=== PATIENT | male | born 1995 | race Two or more races ===

== ENCOUNTER 2016-05-22 20:08 | Inpatient (IN) | payer BC ==
[~2016-05-22] VITALS: Ht 182.9 cm; Wt 86.2 kg
[2016-05-22] MEDS ORDERED: NALOXONE HCL 0.4 MG/ML AMPUL IV ONE ×2 (20:30→22:30)
[2016-05-22] MEDS ORDERED: IV SET PRIMARY 1 EA INFUS.SET MC ONE (20:54)
[2016-05-22] MEDS ORDERED: NALOXONE HCL 0.4 MG/ML AMPUL ONE ×2 (20:54→21:20)
[2016-05-22] MEDS ORDERED: IV NS 0.9% 1,000 ML ONE (20:54)
[2016-05-22] MEDS ORDERED: IV NS 0.9% 1,000 ML BAG IV ONE (21:00)
[2016-05-22] MEDS ORDERED: NALOXONE PREFILLED SYRINGE 2 MG/2 ML SYRINGE ONE ×2 (21:24→22:02)
[2016-05-22] MEDS ORDERED: NALOXONE HCL 2 MG in IV D5W 245 ML IV PRN (22:00)
[2016-05-22] MEDS ORDERED: IV D5W 250 ML IV ONE (22:02)
[2016-05-22] MEDS ORDERED: IV SET PRIMARY PUMP SET 1 EA INFUS.SET MC ONE (22:02)
[2016-05-22 23:12] LABS: BASOPHILS % (AUTO) 0.4 % (0.0-2.0); DIFF TOTAL % 100 %; EOSINOPHILS # (AUTO) 0.3 /CMM (0.0-0.7); EOSINOPHILS % (AUTO) 2.4 % (0.0-6.0); HEMATOCRIT 41 % (39-51); HEMOGLOBIN 13.8 g/dL (13.5-17.5); LYMPHOCYTES # (AUTO) 3.9 /CMM (0.8-4.8); LYMPHOCYTES % (AUTO) 34.4 % (20.0-44.0); MEAN CORPUSCULAR HEMOGLOBIN 28 PG (26.0-33.0); MEAN CORPUSCULAR HGB CONC 33 g/dl (31.0-36.0); MEAN CORPUSCULAR VOLUME 85 fL (80-96); MONOCYTES # (AUTO) 0.8 /CMM (0.1-1.30); MONOCYTES % (AUTO) 6.7 % (2.0-12.0); NEUTROPHILS # (AUTO) 6.3 /CMM (1.8-8.9); NEUTROPHILS % (AUTO) 56.1 % (43.0-81.0); PLATELET COUNT (AUTO) 291 /CMM (150-450); RED BLOOD CELL COUNT(AUTO) 4.85 MIL/uL (4.5-6.0); WHITE BLOOD COUNT (AUTO) 11.3 K/uL (4.3-11.0)
[2016-05-22 23:20] LABS: ANION GAP 10 (5-14); CALCIUM, SERUM 8.7 mg/dL (8.5-10.1); CARBON DIOXIDE 31 mmol/L (21-32); CHLORIDE 102 mmol/L (98-107); CREATININE 0.9 mg/dL (0.6-1.3); GFR 107 mL/min (>60); GLUCOSE 103 mg/dL (74-106); POTASSIUM 4.1 mmol/L (3.5-5.1); SODIUM SERUM 139 mmol/L (136-145); UREA NITROGEN, BLOOD 12 mg/dL (7-18)
[2016-05-22] MEDS ORDERED: LIDOCAINE 2% JEL UROJET 10 ML MM ONE ×2 (23:26→23:30)
[2016-05-22] MEDS ORDERED: IV NS 0.9% 1,000 ML IV PRN (23:41)
[2016-05-23] VITALS (102 sets, daily range): BP systolic 81–161; BP diastolic 32–115
[2016-05-23] LABS: TROPONIN I < 0.017 ng/mL (0.00-0.056)
[2016-05-23] MEDS ORDERED: ONDANSETRON HCL/PF 4 MG/2 ML VIAL IVP PRN
[2016-05-23] MEDS ORDERED: MAGNESIUM HYDROXIDE 30 ML UDC PO PRN
[2016-05-23] MEDS ORDERED: ACETAMINOPHEN 325 MG TABLET PO PRN
[2016-05-23] MEDS ORDERED: MAG HYDROX/AL HYDROX/SIMETH 30 ML UDC PO PRN
[2016-05-23] MEDS ORDERED: Z GUARD REMEDY 2 OZ OINT TP PRN
[2016-05-23 00:01] LABS: CANNABINOID, URINE NEGATIVE (NEGATIVE); PHENCYCLIDINE SCREEN,URINE NEGATIVE (NEGATIVE)
[2016-05-23 00:04] LABS: ALANINE AMINOTRANSFERASE 27 U/L (12-78); ALBUMIN 4.2 g/dL (3.4-5.0); ASPARTATE AMINOTRANSFERASE 14 U/L (15-37); BILIRUBIN,TOTAL 0.2 mg/dL (0.2-1.0); INDIRECT BILIRUBIN 0.2 mg/dL (0.0-1.1); TOTAL PROTEIN, SERUM 7.8 g/dL (6.4-8.2)
[2016-05-23] MEDS ORDERED: IV NS 0.9% 1,000 ML ONE ×2 (00:26→03:29)
[2016-05-23] MEDS ORDERED: LORAZEPAM INJ 2 MG/ML VIAL ONE (00:39)
[2016-05-23] MEDS ORDERED: LORAZEPAM INJ 2 MG/ML VIAL IV STA (00:43)
[2016-05-23] MEDS ORDERED: IV SET PRIMARY PUMP SET 1 EA INFUS.SET MC ONE ×2 (00:50→13:46)
[2016-05-23] MEDS ORDERED: NALOXONE HCL 0.4 MG/ML AMPUL ONE (03:04)
[2016-05-23] MEDS ORDERED: NALOXONE HCL 0.4 MG/ML AMPUL IV STA (03:06)
[2016-05-23] MEDS ORDERED: PROPOFOL 100 ML IV ONE ×2 (03:32→06:45)
[2016-05-23] MEDS: PROPOFOL 100 ML IV PRN ×5 (03:33→22:14)
[2016-05-23] MEDS ORDERED: IV NS 0.9% 1,000 ML IV ONE (04:00)
[2016-05-23 04:40] LABS: BASOPHILS % (AUTO) 0.2 % (0.0-2.0); DIFF TOTAL % 100 %; EOSINOPHILS # (AUTO) 0.1 /CMM (0.0-0.7); EOSINOPHILS % (AUTO) 0.8 % (0.0-6.0); HEMATOCRIT 34 % (39-51); HEMOGLOBIN 11.6 g/dL (13.5-17.5); LYMPHOCYTES # (AUTO) 1.5 /CMM (0.8-4.8); MEAN CORPUSCULAR HEMOGLOBIN 29 PG (26.0-33.0); MEAN CORPUSCULAR HGB CONC 34 g/dl (31.0-36.0); MEAN CORPUSCULAR VOLUME 85 fL (80-96); MONOCYTES % (AUTO) 7.7 % (2.0-12.0); NEUTROPHILS # (AUTO) 10.6 /CMM (1.8-8.9); NEUTROPHILS % (AUTO) 80.3 % (43.0-81.0); PLATELET COUNT (AUTO) 278 /CMM (150-450); RED BLOOD CELL COUNT(AUTO) 3.99 MIL/uL (4.5-6.0); WHITE BLOOD COUNT (AUTO) 13.2 K/uL (4.3-11.0)
[2016-05-23 04:52] LABS: CALCIUM, SERUM 7.4 mg/dL (8.5-10.1); CREATININE 0.8 mg/dL (0.6-1.3); PHOSPHORUS 5.8 mg/dL (2.5-4.9); POTASSIUM 4.6 mmol/L (3.5-5.1)
[2016-05-23 05:15] LABS: ABG HCO3 26.5 mmol/L; ABG PCO2 57.3 mmHg (35.0-45.0); ABG PH 7.283 (7.350-7.450); ABG TOTAL HEMOGLOBIN 12.2 G/dL (13.5-18.0); AaDO2 14.6 mmHg; O2Hb 96.2 % (94.0-97.0)
[2016-05-23] MEDS ORDERED: PANTOPRAZOLE 40 MG TABLET.DR PO SCH (07:30)
[2016-05-23] MEDS ORDERED: IBUP-1955 PO (10:16)
[2016-05-23] MEDS ORDERED: CLON1TAB4 PO (10:16)
[2016-05-23] MEDS: PANTOPRAZOLE 40 MG VIAL IV SCH (12:04)
[2016-05-23] MEDS: IV NS 0.9% 1,000 ML IV PRN ×2 (12:04→19:07)
[2016-05-23] MEDS: LORAZEPAM INJ 2 MG/ML VIAL IV PRN ×2 (20:00→22:13)
[2016-05-24] VITALS (15 sets, daily range): BP systolic 105–131; BP diastolic 49–83
[2016-05-24] MEDS: PROPOFOL 100 ML IV PRN ×4 (00:56→06:48)
[2016-05-24] MEDS: LORAZEPAM INJ 2 MG/ML VIAL IV PRN ×3 (00:57→09:09)
[2016-05-24] MEDS: IV NS 0.9% 1,000 ML IV PRN ×2 (01:36→08:14)
[2016-05-24] MEDS ORDERED: PROPOFOL 100 ML IV ONE ×3 (02:28→06:42)
[2016-05-24] MEDS ORDERED: IV SET PRIMARY PUMP SET 1 EA INFUS.SET MC ONE (02:55)
[2016-05-24 08:43] LABS: ABG BASE EXCESS -0.5 mmol/L; ABG HCO3 24.6 mmol/L; ABG PCO2 42.4 mmHg (35.0-45.0); ABG PH 7.382 (7.350-7.450); ABG PO2 109.5 mmHg (75.0-100.0); ABG TOTAL HEMOGLOBIN 12.4 G/dL (13.5-18.0); ALLEN TEST Pass; AaDO2 54.6 mmHg; O2Hb 95.9 % (94.0-97.0)
[2016-05-24 08:53] LABS: CALCIUM, SERUM 7.7 mg/dL (8.5-10.1); CREATININE 0.6 mg/dL (0.6-1.3); POTASSIUM 3.5 mmol/L (3.5-5.1)
[2016-05-24 08:59] LABS: BASOPHILS % (AUTO) 0.3 % (0.0-2.0); DIFF TOTAL % 100 %; EOSINOPHILS # (AUTO) 0.1 /CMM (0.0-0.7); EOSINOPHILS % (AUTO) 0.7 % (0.0-6.0); HEMATOCRIT 34 % (39-51); HEMOGLOBIN 11.6 g/dL (13.5-17.5); LYMPHOCYTES # (AUTO) 1.7 /CMM (0.8-4.8); LYMPHOCYTES % (AUTO) 20.7 % (20.0-44.0); MEAN CORPUSCULAR HEMOGLOBIN 29 PG (26.0-33.0); MEAN CORPUSCULAR HGB CONC 34 g/dl (31.0-36.0); MEAN CORPUSCULAR VOLUME 84 fL (80-96); MONOCYTES # (AUTO) 0.9 /CMM (0.1-1.30); MONOCYTES % (AUTO) 10.5 % (2.0-12.0); NEUTROPHILS # (AUTO) 5.5 /CMM (1.8-8.9); NEUTROPHILS % (AUTO) 67.8 % (43.0-81.0); PLATELET COUNT (AUTO) 175 /CMM (150-450); RED BLOOD CELL COUNT(AUTO) 4.04 MIL/uL (4.5-6.0); WHITE BLOOD COUNT (AUTO) 8.1 K/uL (4.3-11.0)
[2016-05-24] MEDS: PANTOPRAZOLE 40 MG VIAL IV SCH (09:13)
[2016-05-24] MEDS ORDERED: LORAZEPAM 1 MG TABLET PO PRN (10:00)
[2016-05-25] MEDS ORDERED: PANTOPRAZOLE 40 MG TABLET.DR PO SCH (07:30)
== END 2016-05-24 11:20 | disposition left against medical advice (07) | DRG 812 ==
LOC: ER 20:09 → ICU 22:58
PROVIDERS: ADMIT Internal Medicine; ATTEND Internal Medicine
DX: T42.3X1A Poisoning by barbiturates, accidental (unintentional), initial encounter (principal); J96.02 Acute respiratory failure with hypercapnia; Y92.9 Unspecified place or not applicable; F10.10 Alcohol abuse, uncomplicated; F41.1 Generalized anxiety disorder; F19.10 Other psychoactive substance abuse, uncomplicated
CPT/HCPCS: 31720; 36415; 36600; 71010-TC; 80048-TC; 80076-TC; 80305; 83735-TC; 83880; 84100-TC; 84484-TC; 85025-TC; 94002-TC; 94003-TC; 94799-TC; A4606; C9113; G6040-TC; J2060; J2310; J3490; J7030; J7060; Z7610

== ENCOUNTER 2016-05-24 13:44 | Emergency (ER) | payer BC ==
[~2016-05-24] VITALS: Ht 185.4 cm; Wt 86.2 kg
[~2016-05-24 13:44] MED LIST: CLON1TAB4 PO; IBUP-1955 PO
[2016-05-24 19:28] VITALS: BP 129/71
== END 2016-05-24 19:29 | disposition home or self-care (01) ==
LOC: ER 14:25
DX: F19.10 Other psychoactive substance abuse, uncomplicated (principal); F31.9 Bipolar disorder, unspecified; F41.9 Anxiety disorder, unspecified; R73.09 Other abnormal glucose
CPT/HCPCS: 82962-TC; A4606; Z7610

== ENCOUNTER 2016-05-25 01:17 | Inpatient (IN) | payer BC ==
[2016-05-25] VITALS (41 sets, daily range): BP systolic 61–132; BP diastolic 29–70
[~2016-05-25] VITALS: Ht 175.3 cm; Wt 82.6 kg
[2016-05-25] MEDS ORDERED: IV NS 0.9% 1,000 ML ONE ×2 (01:26→03:28)
[2016-05-25] MEDS ORDERED: IV SET PRIMARY 1 EA INFUS.SET MC ONE (01:26)
[2016-05-25] MEDS ORDERED: IV NS 0.9% 1,000 ML BAG IV ONE ×2 (01:30→08:00)
[2016-05-25] MEDS ORDERED: NALOXONE PREFILLED SYRINGE 2 MG/2 ML SYRINGE ONE ×2 (01:35→02:37)
[2016-05-25 01:36] LABS: BASOPHILS # (AUTO) 0.1 /CMM (0.0-0.2); BASOPHILS % (AUTO) 0.5 % (0.0-2.0); DIFF TOTAL % 100 %; EOSINOPHILS # (AUTO) 0.1 /CMM (0.0-0.7); EOSINOPHILS % (AUTO) 0.3 % (0.0-6.0); HEMATOCRIT 42 % (39-51); HEMOGLOBIN 13.6 g/dL (13.5-17.5); LYMPHOCYTES # (AUTO) 4.7 /CMM (0.8-4.8); LYMPHOCYTES % (AUTO) 20.2 % (20.0-44.0); MEAN CORPUSCULAR HEMOGLOBIN 28 PG (26.0-33.0); MEAN CORPUSCULAR HGB CONC 33 g/dl (31.0-36.0); MEAN CORPUSCULAR VOLUME 86 fL (80-96); MONOCYTES # (AUTO) 0.2 /CMM (0.1-1.30); MONOCYTES % (AUTO) 0.7 % (2.0-12.0); NEUTROPHILS # (AUTO) 18.2 /CMM (1.8-8.9); NEUTROPHILS % (AUTO) 78.3 % (43.0-81.0); PLATELET COUNT (AUTO) 322 /CMM (150-450); WHITE BLOOD COUNT (AUTO) 23.3 K/uL (4.3-11.0)
[2016-05-25 01:40] LABS: KETONES,URINE TRACE (NEGATIVE); LEUKOCYTE ESTERASE ,URINE NEGATIVE (NEGATIVE)
[2016-05-25 01:41] LABS: ANION GAP 27 (5-14); CALCIUM, SERUM 8.5 mg/dL (8.5-10.1); CARBON DIOXIDE 19 mmol/L (21-32); CHLORIDE 96 mmol/L (98-107); CREATININE 1.6 mg/dL (0.6-1.3); GFR 55 mL/min (>60); GLUCOSE 234 mg/dL (74-106); POTASSIUM 4.6 mmol/L (3.5-5.1); SODIUM SERUM 137 mmol/L (136-145); UREA NITROGEN, BLOOD 7 mg/dL (7-18)
[2016-05-25 01:42] LABS: ADD UA MICROSCOPIC YES
[2016-05-25 01:45] LABS: ADD URINE CULTURE NO; RBC,URINE 0-2 /HPF (0-2); WBC,URINE 0-2 /HPF (0-3)
[2016-05-25 01:47] LABS: ALANINE AMINOTRANSFERASE 73 U/L (12-78); ALBUMIN 3.6 g/dL (3.4-5.0); ASPARTATE AMINOTRANSFERASE 101 U/L (15-37); BILIRUBIN,DIRECT 0.3 mg/dL (0.0-0.2); BILIRUBIN,TOTAL 0.6 mg/dL (0.2-1.0); INDIRECT BILIRUBIN 0.3 mg/dL (0.0-1.1); TOTAL PROTEIN, SERUM 7.5 g/dL (6.4-8.2)
[2016-05-25 01:49] LABS: ACETAMINOPHEN 0 ug/ml (10-30); SALICYLATE 2.3 mg/dL (2.8-20.0)
[2016-05-25 01:49] LABS: CANNABINOID, URINE NEGATIVE (NEGATIVE); PHENCYCLIDINE SCREEN,URINE NEGATIVE (NEGATIVE)
[2016-05-25] MEDS ORDERED: NALOXONE HCL 0.4 MG/ML AMPUL IV ONE (02:00)
[2016-05-25] MEDS ORDERED: NALOXONE HCL 2 MG in IV D5W 245 ML IV PRN (02:30)
[2016-05-25] MEDS ORDERED: IV SET PRIMARY PUMP SET 1 EA INFUS.SET MC ONE ×3 (02:37→08:02)
[2016-05-25] MEDS ORDERED: IV NS 0.9% 250 ML IV ONE (02:37)
[2016-05-25] MEDS ORDERED: IV NS 0.9% 1,000 ML IV PRN ×2 (03:59→04:00)
[2016-05-25] MEDS ORDERED: MAG HYDROX/AL HYDROX/SIMETH 30 ML UDC PO PRN (04:00)
[2016-05-25] MEDS ORDERED: Z GUARD REMEDY 2 OZ OINT TP PRN (04:00)
[2016-05-25] MEDS ORDERED: ONDANSETRON HCL/PF 4 MG/2 ML VIAL IVP PRN (04:00)
[2016-05-25] MEDS ORDERED: HYDROCODONE/APAP 5/325MG 1 EACH TABLET PO PRN (04:00)
[2016-05-25] MEDS ORDERED: MAGNESIUM HYDROXIDE 30 ML UDC PO PRN (04:00)
[2016-05-25] MEDS ORDERED: ZOLPIDEM TARTRATE 5 MG TABLET PO PRN (04:00)
[2016-05-25] MEDS ORDERED: IV NS 0.9% 500 ML IV ONE ×3 (04:52→12:30)
[2016-05-25 05:10] LABS: ABG BASE EXCESS -4.2 mmol/L; ABG HCO3 20.5 mmol/L; ABG NOTIFIED WHOM ED RN; ABG PCO2 36.3 mmHg (35.0-45.0); ABG PH 7.369 (7.350-7.450); ABG PO2 62.7 mmHg (75.0-100.0); ABG TOTAL HEMOGLOBIN 12.7 G/dL (13.5-18.0); ALLEN TEST Pass; AaDO2 469.6 mmHg; O2Hb 89.1 % (94.0-97.0)
[2016-05-25 07:57] LABS: ABG BASE EXCESS -1.7 mmol/L; ABG HCO3 23.2 mmol/L; ABG PCO2 40.2 mmHg (35.0-45.0); ABG PO2 63.7 mmHg (75.0-100.0); ABG TOTAL HEMOGLOBIN 12.4 G/dL (13.5-18.0); ALLEN TEST Pass; AaDO2 464.5 mmHg; O2Hb 90.1 % (94.0-97.0)
[2016-05-25] MEDS ORDERED: SECONDARY IV SET 1 EA INFUS.SET MC ONE (08:03)
[2016-05-25] MEDS: PIPERACILLIN /TAZOBACTAM 3.375 G in IV D5W 50 ML IV SCH ×4 (08:05→23:44)
[2016-05-25] MEDS: PANTOPRAZOLE 40 MG TABLET.DR PO SCH (08:14)
[2016-05-25 08:21] LABS: LACTIC ACID 1.1 mmol/L (0.4-2.0)
[2016-05-25] MEDS: VANCOMYCIN 1.25 GM in IV D5W 500 ML IV SCH ×2 (08:35→20:33)
[2016-05-25] MEDS: ACETAMINOPHEN 325 MG TABLET PO PRN ×2 (08:38→23:44)
[2016-05-25 09:01] LABS: CREATININE 0.8 mg/dL (0.6-1.3); POTASSIUM 4.3 mmol/L (3.5-5.1)
[2016-05-25 09:07] LABS: ALBUMIN 2.6 g/dL (3.4-5.0); BILIRUBIN,DIRECT 0.1 mg/dL (0.0-0.2); BILIRUBIN,TOTAL 0.4 mg/dL (0.2-1.0); INDIRECT BILIRUBIN 0.3 mg/dL (0.0-1.1); TOTAL PROTEIN, SERUM 5.6 g/dL (6.4-8.2)
[2016-05-25] MEDS: IV NS 0.9% 1,000 ML IV PRN (14:48)
[2016-05-25] MEDS ORDERED: FEE PK DOSING 1 MIN EA MC ONE (16:13)
[2016-05-25] MEDS ORDERED: NOREPINEPHRINE 16 MG in IV D5W 500 ML IV PRN (17:00)
[2016-05-26] VITALS (43 sets, daily range): BP systolic 65–149; BP diastolic 29–92
[2016-05-26] MEDS: IV NS 0.9% 1,000 ML IV PRN ×3 (01:38→16:52)
[2016-05-26 04:48] LABS: BASOPHILS % (AUTO) 0.4 % (0.0-2.0); DIFF TOTAL % 100 %; EOSINOPHILS # (AUTO) 0.1 /CMM (0.0-0.7); EOSINOPHILS % (AUTO) 1.2 % (0.0-6.0); HEMATOCRIT 29 % (39-51); HEMOGLOBIN 10.1 g/dL (13.5-17.5); LYMPHOCYTES # (AUTO) 1.7 /CMM (0.8-4.8); LYMPHOCYTES % (AUTO) 22.4 % (20.0-44.0); MEAN CORPUSCULAR HEMOGLOBIN 29 PG (26.0-33.0); MEAN CORPUSCULAR HGB CONC 34 g/dl (31.0-36.0); MEAN CORPUSCULAR VOLUME 84 fL (80-96); MONOCYTES # (AUTO) 0.9 /CMM (0.1-1.30); MONOCYTES % (AUTO) 11.8 % (2.0-12.0); NEUTROPHILS # (AUTO) 4.8 /CMM (1.8-8.9); NEUTROPHILS % (AUTO) 64.2 % (43.0-81.0); PLATELET COUNT (AUTO) 160 /CMM (150-450); RED BLOOD CELL COUNT(AUTO) 3.48 MIL/uL (4.5-6.0); WHITE BLOOD COUNT (AUTO) 7.5 K/uL (4.3-11.0)
[2016-05-26 05:04] LABS: CALCIUM, SERUM 7.3 mg/dL (8.5-10.1); CREATININE 0.6 mg/dL (0.6-1.3); POTASSIUM 3.8 mmol/L (3.5-5.1)
[2016-05-26] MEDS: PIPERACILLIN /TAZOBACTAM 3.375 G in IV D5W 50 ML IV SCH ×3 (05:04→17:47)
[2016-05-26] MEDS: PANTOPRAZOLE 40 MG TABLET.DR PO SCH (08:16)
[2016-05-26] MEDS: ACETAMINOPHEN 325 MG TABLET PO PRN ×3 (08:16→19:37)
[2016-05-26] MEDS: VANCOMYCIN 1.25 GM in IV D5W 500 ML IV SCH ×2 (08:18→20:44)
[2016-05-26] MEDS ORDERED: Magnesium 1GM/D5W 100ML PREMIX 100 ML IV SCH (11:00)
[2016-05-26] MEDS ORDERED: Magnesium 1GM/D5W 100ML PREMIX PIGGYBACK IV ONE (11:00)
[2016-05-26] MEDS ORDERED: IV SET PRIMARY PUMP SET 1 EA INFUS.SET MC ONE (11:19)
[2016-05-26] MEDS ORDERED: IV NS 0.9% 500 ML IV ONE (11:20)
[2016-05-26] MEDS ORDERED: K PHOS NEUTRAL 250 MG TABLET PO ONE (16:00)
[2016-05-26] MEDS ORDERED: SECONDARY IV SET 1 EA INFUS.SET MC ONE (19:50)
[2016-05-27] VITALS (26 sets, daily range): BP systolic 101–142; BP diastolic 46–95
[2016-05-27] MEDS ORDERED: IV SET PRIMARY PUMP SET 1 EA INFUS.SET MC ONE (00:32)
[2016-05-27] MEDS: IV NS 0.9% 1,000 ML IV PRN ×2 (00:39→11:44)
[2016-05-27] MEDS: PIPERACILLIN /TAZOBACTAM 3.375 G in IV D5W 50 ML IV SCH ×4 (02:05→17:04)
[2016-05-27 04:32] LABS: BASOPHILS % (AUTO) 0.4 % (0.0-2.0); DIFF TOTAL % 100 %; EOSINOPHILS # (AUTO) 0.2 /CMM (0.0-0.7); EOSINOPHILS % (AUTO) 3.1 % (0.0-6.0); HEMATOCRIT 34 % (39-51); HEMOGLOBIN 11.3 g/dL (13.5-17.5); LYMPHOCYTES # (AUTO) 1.6 /CMM (0.8-4.8); LYMPHOCYTES % (AUTO) 21.1 % (20.0-44.0); MEAN CORPUSCULAR HEMOGLOBIN 29 PG (26.0-33.0); MEAN CORPUSCULAR HGB CONC 34 g/dl (31.0-36.0); MEAN CORPUSCULAR VOLUME 85 fL (80-96); MONOCYTES % (AUTO) 13.2 % (2.0-12.0); NEUTROPHILS # (AUTO) 4.6 /CMM (1.8-8.9); NEUTROPHILS % (AUTO) 62.2 % (43.0-81.0); PLATELET COUNT (AUTO) 223 /CMM (150-450); RED BLOOD CELL COUNT(AUTO) 3.94 MIL/uL (4.5-6.0); WHITE BLOOD COUNT (AUTO) 7.4 K/uL (4.3-11.0)
[2016-05-27 04:45] LABS: CREATININE 0.6 mg/dL (0.6-1.3); PHOSPHORUS 3.3 mg/dL (2.5-4.9); POTASSIUM 3.8 mmol/L (3.5-5.1)
[2016-05-27] MEDS: VANCOMYCIN 1.25 GM in IV D5W 500 ML IV SCH ×3 (05:00→21:01)
[2016-05-27] MEDS: PANTOPRAZOLE 40 MG TABLET.DR PO SCH (07:53)
[2016-05-27] MEDS: ACETAMINOPHEN 325 MG TABLET PO PRN ×3 (08:21→19:56)
[2016-05-27] MEDS ORDERED: Magnesium 1GM/D5W 100ML PREMIX 100 ML IV SCH ×2 (09:30)
[2016-05-27] MEDS ORDERED: SECONDARY IV SET 1 EA INFUS.SET MC ONE (10:27)
[2016-05-27] MEDS: LACTOBACILLUS RHAMNOSUS GG 1 EACH CAP.SPRINK PO SCH (17:04)
[2016-05-28] VITALS (7 sets, daily range): BP systolic 96–128; BP diastolic 47–72
[2016-05-28] MEDS: ACETAMINOPHEN 325 MG TABLET PO PRN ×4 (01:44→21:04)
[2016-05-28] MEDS: VANCOMYCIN 1.25 GM in IV D5W 500 ML IV SCH (05:11)
[2016-05-28 07:05] LABS: BASOPHILS % (AUTO) 0.2 % (0.0-2.0); EOSINOPHILS # (AUTO) 0.3 /CMM (0.0-0.7); HEMATOCRIT 37 % (39-51); HEMOGLOBIN 12.6 g/dL (13.5-17.5); LYMPHOCYTES # (AUTO) 1.5 /CMM (0.8-4.8); LYMPHOCYTES % (AUTO) 17.5 % (20.0-44.0); MEAN CORPUSCULAR HEMOGLOBIN 28 PG (26.0-33.0); MEAN CORPUSCULAR HGB CONC 34 g/dl (31.0-36.0); MEAN CORPUSCULAR VOLUME 83 fL (80-96); MONOCYTES # (AUTO) 0.8 /CMM (0.1-1.30); MONOCYTES % (AUTO) 9.5 % (2.0-12.0); NEUTROPHILS # (AUTO) 6.1 /CMM (1.8-8.9); NEUTROPHILS % (AUTO) 69.8 % (43.0-81.0); PLATELET COUNT (AUTO) 278 /CMM (150-450); RED BLOOD CELL COUNT(AUTO) 4.42 MIL/uL (4.5-6.0); WHITE BLOOD COUNT (AUTO) 8.7 K/uL (4.3-11.0)
[2016-05-28] MEDS: PIPERACILLIN /TAZOBACTAM 3.375 G in IV D5W 50 ML IV SCH ×5 (07:14→18:20)
[2016-05-28 07:27] LABS: CALCIUM, SERUM 8.4 mg/dL (8.5-10.1); CREATININE 0.7 mg/dL (0.6-1.3)
[2016-05-28 07:55] LABS: DIFF TOTAL % 100 %
[2016-05-28] MEDS: LACTOBACILLUS RHAMNOSUS GG 1 EACH CAP.SPRINK PO SCH ×2 (08:18→16:19)
[2016-05-28] MEDS: PANTOPRAZOLE 40 MG TABLET.DR PO SCH (08:18)
[2016-05-28] MEDS: VANCOMYCIN 1 GM in IV D5W 250 ML IV SCH (16:49)
[2016-05-29] MEDS: PIPERACILLIN /TAZOBACTAM 3.375 G in IV D5W 50 ML IV SCH ×5 (00:01→23:37)
[2016-05-29] MEDS: VANCOMYCIN 1 GM in IV D5W 250 ML IV SCH ×5 (00:01→23:36)
[2016-05-29 00:12] VITALS: BP 117/65
[2016-05-29] MEDS: ACETAMINOPHEN 325 MG TABLET PO PRN ×3 (03:03→21:35)
[2016-05-29 04:00] VITALS: BP 124/65
[2016-05-29 08:00] VITALS: BP 100/51
[2016-05-29] MEDS: LACTOBACILLUS RHAMNOSUS GG 1 EACH CAP.SPRINK PO SCH ×2 (08:22→17:08)
[2016-05-29] MEDS: PANTOPRAZOLE 40 MG TABLET.DR PO SCH (08:22)
[2016-05-29 16:00] VITALS: BP 96/54
[2016-05-29 20:00] VITALS: BP 107/73
[2016-05-29 20:30] VITALS: BP 97/52
[2016-05-30] VITALS: BP 103/53
[2016-05-30 00:09] VITALS: BP 103/53
[2016-05-30] MEDS ORDERED: IV NS 0.9% 250 ML IV ONE (02:28)
[2016-05-30 04:00] VITALS: BP 106/49
[2016-05-30 04:47] VITALS: BP 106/49
[2016-05-30] MEDS: PIPERACILLIN /TAZOBACTAM 3.375 G in IV D5W 50 ML IV SCH (06:14)
[2016-05-30 07:25] LABS: CALCIUM, SERUM 9.1 mg/dL (8.5-10.1); CREATININE 0.6 mg/dL (0.6-1.3); POTASSIUM 4.4 mmol/L (3.5-5.1)
[2016-05-30 08:00] VITALS: BP_SYST 119; BP_SYST 165; BP_DIAS 60; BP_DIAS 66; BP_DIAS 84
[2016-05-30] MEDS: ACETAMINOPHEN 325 MG TABLET PO PRN (08:03)
[2016-05-30] MEDS: LACTOBACILLUS RHAMNOSUS GG 1 EACH CAP.SPRINK PO SCH (08:03)
[2016-05-30] MEDS: VANCOMYCIN 1 GM in IV D5W 250 ML IV SCH (08:04)
[2016-05-30] MEDS: PANTOPRAZOLE 40 MG TABLET.DR PO SCH (08:04)
[2016-05-30] MEDS ORDERED: VANCOMYCIN 1 GM in IV D5W 250 ML IV SCH (16:00)
== END 2016-05-30 15:14 | DRG 812 ==
LOC: ER 01:18 → ICU 02:52 → TELE-TD 05-27 18:26 → TELE1 05-28 16:08
PROVIDERS: ADMIT Internal Medicine; ATTEND Internal Medicine
DX: T50.901A Poisoning by unspecified drugs, medicaments and biological substances, accidental (unintentional), initial encounter (principal); N17.0 Acute kidney failure with tubular necrosis; J96.01 Acute respiratory failure with hypoxia; J69.0 Pneumonitis due to inhalation of food and vomit; J90 Pleural effusion, not elsewhere classified; Y92.89 Other specified places as the place of occurrence of the external cause; F31.9 Bipolar disorder, unspecified; F41.1 Generalized anxiety disorder; E83.42 Hypomagnesemia; F10.10 Alcohol abuse, uncomplicated; F11.20 Opioid dependence, uncomplicated
CPT/HCPCS: 36415; 36600; 71010-TC; 80048-TC; 80076-TC; 80202-TC; 80305; 81000-TC; 82803-TC; 82962-TC; 83605-TC; 83735-TC; 83880; 84100-TC; 85025-TC; 87040-TC; 87081-TC; 93307-TC; 94799-TC; A4606; C1751; G6038-TC; G6039-TC; G6040-TC; J2310; J2405; J2543; J3370; J3475; J7030; J7040; J7050; J7060; Z7610

== ENCOUNTER 2016-06-03 18:28 | Emergency (ER) | payer BC, OTHER ==
[~2016-06-03] VITALS: Ht 182.9 cm; Wt 86.2 kg
[2016-06-03] MEDS ORDERED: LORAZEPAM INJ 2 MG/ML VIAL IVP ONE ×2 (19:00→20:00)
[2016-06-03] MEDS ORDERED: IV NS 0.9% 1,000 ML BAG IV ONE (19:00)
[2016-06-03] MEDS ORDERED: IV NS 0.9% 1,000 ML ONE (19:07)
[2016-06-03] MEDS ORDERED: IV SET PRIMARY 1 EA INFUS.SET MC ONE (19:07)
[2016-06-03] MEDS ORDERED: LORAZEPAM INJ 2 MG/ML VIAL ONE ×2 (19:07→19:33)
[2016-06-03 19:29] LABS: BASOPHILS # (AUTO) 0.1 /CMM (0.0-0.2); BASOPHILS % (AUTO) 0.8 % (0.0-2.0); DIFF TOTAL % 100 %; EOSINOPHILS # (AUTO) 0.3 /CMM (0.0-0.7); EOSINOPHILS % (AUTO) 3.2 % (0.0-6.0); HEMATOCRIT 45 % (39-51); HEMOGLOBIN 15.1 g/dL (13.5-17.5); LYMPHOCYTES # (AUTO) 4.9 /CMM (0.8-4.8); LYMPHOCYTES % (AUTO) 44.5 % (20.0-44.0); MEAN CORPUSCULAR HEMOGLOBIN 28 PG (26.0-33.0); MEAN CORPUSCULAR HGB CONC 34 g/dl (31.0-36.0); MEAN CORPUSCULAR VOLUME 84 fL (80-96); MONOCYTES # (AUTO) 0.7 /CMM (0.1-1.30); NEUTROPHILS # (AUTO) 4.7 /CMM (1.8-8.9); NEUTROPHILS % (AUTO) 44.5 % (43.0-81.0); PLATELET COUNT (AUTO) 498 /CMM (150-450); RED BLOOD CELL COUNT(AUTO) 5.38 MIL/uL (4.5-6.0); WHITE BLOOD COUNT (AUTO) 10.7 K/uL (4.3-11.0)
[2016-06-03 19:30] LABS: ADD UA MICROSCOPIC NO; KETONES,URINE Negative (NEGATIVE); LEUKOCYTE ESTERASE ,URINE Negative (NEGATIVE); PH,URINE 6.5 (5.0-8.0)
[2016-06-03] MEDS ORDERED: diphenhydrAMINE HCL 50 MG/ML VIAL ONE (19:33)
[2016-06-03] MEDS ORDERED: HALOPERIDOL LACTATE INJ 5 MG/ML VIAL ONE (19:33)
[2016-06-03 19:38] LABS: CANNABINOID, URINE NEGATIVE (NEGATIVE); PHENCYCLIDINE SCREEN,URINE NEGATIVE (NEGATIVE)
[2016-06-03 19:40] LABS: CALCIUM, SERUM 9.2 mg/dL (8.5-10.1); CREATININE 0.7 mg/dL (0.6-1.3)
[2016-06-03 19:45] LABS: ALBUMIN 4.2 g/dL (3.4-5.0); BILIRUBIN,TOTAL 0.2 mg/dL (0.2-1.0); TOTAL PROTEIN, SERUM 8.4 g/dL (6.4-8.2)
[2016-06-03 19:47] LABS: INDIRECT BILIRUBIN 0.2 mg/dL (0.0-1.1); SALICYLATE 1.8 mg/dL (2.8-20.0)
[2016-06-03] MEDS ORDERED: HALOPERIDOL LACTATE INJ 5 MG/ML VIAL IM ONE (20:00)
[2016-06-03] MEDS ORDERED: diphenhydrAMINE HCL 50 MG/ML VIAL IV ONE (20:00)
[2016-06-04] MEDS ORDERED: CHLORDIAZEPOXIDE HCL 25 MG CAPSULE ONE (05:27)
[2016-06-04] MEDS ORDERED: CHLORDIAZEPOXIDE HCL 25 MG CAPSULE PO ONE (05:30)
[2016-06-04 05:32] VITALS: BP 115/65
== END 2016-06-04 07:01 ==
LOC: ER 18:30
DX: R45.851 Suicidal ideations (principal); F10.10 Alcohol abuse, uncomplicated
CPT/HCPCS: 36415; 80048-TC; 80076-TC; 80305; 81000-TC; 85025-TC; A4606; G6038-TC; G6039-TC; G6040-TC; J1200; J1630; J2060; J7030; Z7610

== ENCOUNTER 2016-07-01 18:24 | Inpatient (IN) | payer BC ==
[~2016-07-01] VITALS: Ht 182.9 cm; Wt 87.8 kg
[2016-07-01 18:45] LABS: BASOPHILS # (AUTO) 0.1 /CMM (0.0-0.2); BASOPHILS % (AUTO) 0.6 % (0.0-2.0); DIFF TOTAL % 100 %; EOSINOPHILS # (AUTO) 0.6 /CMM (0.0-0.7); EOSINOPHILS % (AUTO) 4.8 % (0.0-6.0); HEMATOCRIT 41 % (39-51); HEMOGLOBIN 13.8 g/dL (13.5-17.5); LYMPHOCYTES # (AUTO) 3.9 /CMM (0.8-4.8); MEAN CORPUSCULAR HEMOGLOBIN 28 PG (26.0-33.0); MEAN CORPUSCULAR HGB CONC 34 g/dl (31.0-36.0); MEAN CORPUSCULAR VOLUME 83 fL (80-96); MONOCYTES % (AUTO) 8.3 % (2.0-12.0); NEUTROPHILS # (AUTO) 6.7 /CMM (1.8-8.9); NEUTROPHILS % (AUTO) 54.3 % (43.0-81.0); PLATELET COUNT (AUTO) 278 /CMM (150-450); RED BLOOD CELL COUNT(AUTO) 4.96 MIL/uL (4.5-6.0); WHITE BLOOD COUNT (AUTO) 12.3 K/uL (4.3-11.0)
[2016-07-01 18:53] LABS: ANION GAP 13 (5-14); CALCIUM, SERUM 8.9 mg/dL (8.5-10.1); CARBON DIOXIDE 27 mmol/L (21-32); CHLORIDE 109 mmol/L (98-107); CREATININE 0.8 mg/dL (0.6-1.3); GFR 121 mL/min (>60); GLUCOSE 91 mg/dL (74-106); POTASSIUM 3.3 mmol/L (3.5-5.1); SODIUM SERUM 146 mmol/L (136-145); UREA NITROGEN, BLOOD 12 mg/dL (7-18)
[2016-07-01 18:57] LABS: ACETAMINOPHEN 0 ug/ml (10-30); SALICYLATE 2.1 mg/dL (2.8-20.0)
[2016-07-01] MEDS ORDERED: IV NS 0.9% 1,000 ML BAG IV ONE (19:00)
[2016-07-01 19:01] LABS: TROPONIN I < 0.017 ng/mL (0.00-0.056)
[2016-07-01] MEDS ORDERED: IV SET PRIMARY 1 EA INFUS.SET MC ONE (19:11)
[2016-07-01] MEDS ORDERED: IV NS 0.9% 1,000 ML ONE ×2 (19:11→23:14)
[2016-07-01 19:13] VITALS: BP 121/69
[2016-07-01] MEDS ORDERED: IV SET PRIMARY PUMP SET 1 EA INFUS.SET MC ONE ×2 (19:26→23:14)
[2016-07-01] MEDS ORDERED: PROPOFOL 100 ML IV ONE (19:26)
[2016-07-01] MEDS ORDERED: SUCCINYLCHOLINE CHLORIDE 20 MG/ML VIAL IV ONE ×2 (19:30→20:00)
[2016-07-01] MEDS ORDERED: ETOMIDATE 2 MG/ML VIAL IV ONE ×2 (19:30→20:00)
[2016-07-01 20:02] LABS: ABG BASE EXCESS -2.2 mmol/L; ABG HCO3 24.7 mmol/L; ABG PCO2 50.7 mmHg (35.0-45.0); ABG PH 7.305 (7.350-7.450); ABG PO2 600.2 mmHg (75.0-100.0); ABG TOTAL HEMOGLOBIN 13.1 G/dL (13.5-18.0); ALLEN TEST Pass; AaDO2 62.1 mmHg; O2Hb 97.5 % (94.0-97.0)
[2016-07-01] MEDS: PROPOFOL 100 ML IV PRN ×2 (20:10→23:20)
[2016-07-01 20:26] LABS: CANNABINOID, URINE NEGATIVE (NEGATIVE); PHENCYCLIDINE SCREEN,URINE NEGATIVE (NEGATIVE)
[2016-07-01 20:46] VITALS: BP 146/79
[2016-07-01 21:22] LABS: ADD UA MICROSCOPIC NO; KETONES,URINE NEGATIVE (NEGATIVE); LEUKOCYTE ESTERASE ,URINE NEGATIVE (NEGATIVE)
[2016-07-01] MEDS ORDERED: ONDANSETRON HCL/PF 4 MG/2 ML VIAL IVP PRN (22:30)
[2016-07-01] MEDS ORDERED: Z GUARD REMEDY 2 OZ OINT TP PRN (22:30)
[2016-07-01] MEDS ORDERED: MAGNESIUM HYDROXIDE 30 ML UDC PO PRN (22:30)
[2016-07-01] MEDS ORDERED: ACETAMINOPHEN 325 MG TABLET PO PRN (22:30)
[2016-07-01] MEDS ORDERED: MAG HYDROX/AL HYDROX/SIMETH 30 ML UDC PO PRN (22:30)
[2016-07-01 23:00] VITALS: BP 110/45
[2016-07-01 23:04] VITALS: BP 110/60
[2016-07-01] MEDS ORDERED: ENOXAPARIN SODIUM 40 MG/0.4 ML DISP.SYRIN SQ ONE (23:14)
[2016-07-01] MEDS: IV NS 0.9% 1,000 ML IV PRN (23:19)
[2016-07-01] MEDS: ENOXAPARIN SODIUM 40 MG/0.4 ML DISP.SYRIN SQ SCH (23:19)
[2016-07-01 23:34] VITALS: BP 96/63
[2016-07-02] VITALS (38 sets, daily range): BP systolic 96–144; BP diastolic 39–89
[2016-07-02 00:08] LABS: ABG BASE EXCESS -0.6 mmol/L; ABG HCO3 25.8 mmol/L; ABG PCO2 49.8 mmHg (35.0-45.0); ABG PH 7.333 (7.350-7.450); ABG PO2 146.9 mmHg (75.0-100.0); ALLEN TEST Pass; AaDO2 8.5 mmHg; O2Hb 96.2 % (94.0-97.0)
[2016-07-02] MEDS: PROPOFOL 100 ML IV PRN ×12 (01:39→23:40)
[2016-07-02] MEDS ORDERED: LORAZEPAM INJ 2 MG/ML VIAL ONE (03:16)
[2016-07-02] MEDS: LORAZEPAM INJ 2 MG/ML VIAL IV PRN ×2 (03:20→08:36)
[2016-07-02 05:11] LABS: BASOPHILS % (AUTO) 0.4 % (0.0-2.0); DIFF TOTAL % 100 %; EOSINOPHILS # (AUTO) 0.5 /CMM (0.0-0.7); EOSINOPHILS % (AUTO) 4.5 % (0.0-6.0); HEMATOCRIT 37 % (39-51); HEMOGLOBIN 12.6 g/dL (13.5-17.5); MEAN CORPUSCULAR HEMOGLOBIN 28 PG (26.0-33.0); MEAN CORPUSCULAR HGB CONC 34 g/dl (31.0-36.0); MEAN CORPUSCULAR VOLUME 84 fL (80-96); MONOCYTES % (AUTO) 9.7 % (2.0-12.0); NEUTROPHILS # (AUTO) 5.9 /CMM (1.8-8.9); NEUTROPHILS % (AUTO) 56.4 % (43.0-81.0); PLATELET COUNT (AUTO) 254 /CMM (150-450); RED BLOOD CELL COUNT(AUTO) 4.43 MIL/uL (4.5-6.0); WHITE BLOOD COUNT (AUTO) 10.5 K/uL (4.3-11.0)
[2016-07-02 05:36] LABS: ALBUMIN 3.3 g/dL (3.4-5.0); BILIRUBIN,TOTAL 0.1 mg/dL (0.2-1.0); CALCIUM, SERUM 7.6 mg/dL (8.5-10.1); CREATININE 0.8 mg/dL (0.6-1.3); PHOSPHORUS 4.9 mg/dL (2.5-4.9); POTASSIUM 3.6 mmol/L (3.5-5.1); TOTAL PROTEIN, SERUM 6.3 g/dL (6.4-8.2)
[2016-07-02 05:44] LABS: THYROID STIMULATING HORMONE 7.109 uIU/mL (0.358-3.74)
[2016-07-02] MEDS ORDERED: IV NS 0.9% 1,000 ML ONE (05:53)
[2016-07-02] MEDS: IV NS 0.9% 1,000 ML IV PRN (06:09)
[2016-07-02] MEDS: PANTOPRAZOLE 40 MG VIAL IV SCH (08:28)
[2016-07-02] MEDS: IV 1/2NS 1000 ML 1,000 ML IV PRN ×2 (09:17→18:29)
[2016-07-02] MEDS: HYDROCODONE/APAP 5/325MG 1 EACH TABLET PO PRN (10:47)
[2016-07-02] MEDS ORDERED: SECONDARY IV SET 1 EA INFUS.SET MC ONE ×2 (11:04→13:30)
[2016-07-02] MEDS: Magnesium 1GM/D5W 100ML PREMIX 100 ML IV SCH ×2 (11:10→11:58)
[2016-07-02] MEDS ORDERED: IV SET PRIMARY PUMP SET 1 EA INFUS.SET MC ONE (17:47)
[2016-07-02] MEDS ORDERED: SUCCINYLCHOLINE CHLORIDE 20 MG/ML VIAL IV ONE (18:30)
[2016-07-02] MEDS ORDERED: FEE EMEERGENCY 1 MIN EA MC ONE (18:30)
[2016-07-02] MEDS ORDERED: ETOMIDATE 2 MG/ML VIAL IV ONE (18:30)
[2016-07-02] MEDS: ENOXAPARIN SODIUM 40 MG/0.4 ML DISP.SYRIN SQ SCH (22:29)
[2016-07-03] VITALS (29 sets, daily range): BP systolic 110–154; BP diastolic 53–91
[2016-07-03] MEDS: PROPOFOL 100 ML IV PRN ×5 (01:54→08:15)
[2016-07-03] MEDS: IV 1/2NS 1000 ML 1,000 ML IV PRN ×2 (01:57→10:56)
[2016-07-03] MEDS ORDERED: IV SET PRIMARY PUMP SET 1 EA INFUS.SET MC ONE (04:41)
[2016-07-03 04:59] LABS: CALCIUM, SERUM 8.3 mg/dL (8.5-10.1); CREATININE 0.8 mg/dL (0.6-1.3); POTASSIUM 3.8 mmol/L (3.5-5.1)
[2016-07-03] MEDS ORDERED: DC PROPOFOL WHEN EXTUBATED XX PRN (08:00)
[2016-07-03] MEDS: PANTOPRAZOLE 40 MG VIAL IV SCH (08:17)
[2016-07-03 09:47] LABS: ABG BASE EXCESS -0.1 mmol/L; ABG HCO3 24.8 mmol/L; ABG PCO2 41.4 mmHg (35.0-45.0); ABG PH 7.395 (7.350-7.450); ABG PO2 98.1 mmHg (75.0-100.0); AaDO2 67.2 mmHg; O2Hb 95.1 % (94.0-97.0)
[2016-07-03] MEDS: LORAZEPAM INJ 2 MG/ML VIAL IV PRN ×3 (12:55→20:56)
[2016-07-03] MEDS: MENTHOL/CETYLPYRD (CEPACOL) 1 LOZ LOZENGE PO PRN ×2 (16:50→19:40)
[2016-07-03] MEDS ORDERED: IBUPROFEN 400 MG TABLET PO PRN (18:30)
[2016-07-03] MEDS ORDERED: ZOLPIDEM TARTRATE 5 MG TABLET PO PRN (21:00)
[2016-07-03] MEDS: ENOXAPARIN SODIUM 40 MG/0.4 ML DISP.SYRIN SQ SCH (22:45)
[2016-07-03] MEDS ORDERED: LORAZEPAM INJ 2 MG/ML VIAL IV PRN (23:00)
[2016-07-03] MEDS ORDERED: LORAZEPAM INJ 2 MG/ML VIAL IV ONE (23:00)
[2016-07-03] MEDS ORDERED: MENTHOL/CETYLPYRD (CEPACOL) 1 LOZ LOZENGE ONE (23:20)
[2016-07-04] VITALS (18 sets, daily range): BP systolic 92–148; BP diastolic 46–99
[2016-07-04] MEDS: HYDROCODONE/APAP 5/325MG 1 EACH TABLET PO PRN ×4 (00:09→20:50)
[2016-07-04] MEDS: MENTHOL/CETYLPYRD (CEPACOL) 1 LOZ LOZENGE PO PRN ×4 (00:14→21:37)
[2016-07-04] MEDS: LORAZEPAM INJ 2 MG/ML VIAL IV PRN ×4 (02:05→14:05)
[2016-07-04] MEDS: PANTOPRAZOLE 40 MG VIAL IV SCH (09:06)
[2016-07-04] MEDS: LORAZEPAM 1 MG TABLET PO PRN ×2 (18:24→22:29)
[2016-07-04] MEDS: OLANZAPINE 2.5 MG TABLET PO SCH (20:46)
[2016-07-04] MEDS: ENOXAPARIN SODIUM 40 MG/0.4 ML DISP.SYRIN SQ SCH (22:30)
[2016-07-05] MEDS: LORAZEPAM 1 MG TABLET PO PRN ×5 (03:33→20:30)
[2016-07-05] MEDS: MENTHOL/CETYLPYRD (CEPACOL) 1 LOZ LOZENGE PO PRN (05:43)
[2016-07-05] MEDS: HYDROCODONE/APAP 5/325MG 1 EACH TABLET PO PRN ×4 (05:43→21:38)
[2016-07-05 08:00] VITALS: BP 132/69
[2016-07-05] MEDS: OLANZAPINE 2.5 MG TABLET PO SCH ×3 (08:19→17:00)
[2016-07-05] MEDS: PANTOPRAZOLE 40 MG TABLET.DR PO SCH (08:19)
[2016-07-05 16:00] VITALS: BP 131/68
[2016-07-05] MEDS ORDERED: OLANZAPINE 2.5 MG TABLET PO ONE (18:30)
[2016-07-05 20:00] VITALS: BP 125/70
[2016-07-05] MEDS: ENOXAPARIN SODIUM 40 MG/0.4 ML DISP.SYRIN SQ SCH (22:06)
[2016-07-06] MEDS: LORAZEPAM 1 MG TABLET PO PRN ×4 (05:18→20:09)
[2016-07-06 08:00] VITALS: BP 135/66
[2016-07-06] MEDS: PANTOPRAZOLE 40 MG TABLET.DR PO SCH (08:34)
[2016-07-06] MEDS: OLANZAPINE 2.5 MG TABLET PO SCH ×2 (08:34→17:24)
[2016-07-06] MEDS: HYDROCODONE/APAP 5/325MG 1 EACH TABLET PO PRN ×4 (08:36→21:34)
[2016-07-06 16:00] VITALS: BP 149/89
[2016-07-06 20:00] VITALS: BP 133/71
[2016-07-06] MEDS: ENOXAPARIN SODIUM 40 MG/0.4 ML DISP.SYRIN SQ SCH (21:35)
[2016-07-07] MEDS: LORAZEPAM 1 MG TABLET PO PRN ×3 (01:53→10:32)
[2016-07-07] MEDS: HYDROCODONE/APAP 5/325MG 1 EACH TABLET PO PRN ×2 (05:09→12:35)
[2016-07-07 08:00] VITALS: BP 141/73
[2016-07-07] MEDS: OLANZAPINE 2.5 MG TABLET PO SCH (08:11)
[2016-07-07] MEDS: PANTOPRAZOLE 40 MG TABLET.DR PO SCH (08:11)
[2016-07-07] MEDS ORDERED: ENOXAPARIN SODIUM 40 MG/0.4 ML DISP.SYRIN SQ SCH (21:00)
== END 2016-07-07 13:00 | disposition home or self-care (01) | DRG 812 ==
LOC: ER 18:28 → ICU 20:35 → MEDSG2 07-04 18:39
PROVIDERS: ADMIT Contractor; ATTEND Contractor
PROC: 5A1945Z Respiratory Ventilation, 24-96 Consecutive Hours (ICD-10-PCS; principal; 2016-07-01)
PROC: 0BH17EZ Insertion of Endotracheal Airway into Trachea, Via Natural or Artificial Opening (ICD-10-PCS; principal; 2016-07-01)
DX: T42.4X2A Poisoning by benzodiazepines, intentional self-harm, initial encounter (principal); J96.02 Acute respiratory failure with hypercapnia; G92 Toxic encephalopathy; E87.0 Hyperosmolality and hypernatremia; T42.6X2A Poisoning by other antiepileptic and sedative-hypnotic drugs, intentional self-harm, initial encounter; T51.0X1A Toxic effect of ethanol, accidental (unintentional), initial encounter; D72.829 Elevated white blood cell count, unspecified; E87.6 Hypokalemia; E87.2 Acidosis; F31.9 Bipolar disorder, unspecified; F41.9 Anxiety disorder, unspecified; I82.619 Acute embolism and thrombosis of superficial veins of unspecified upper extremity; Y90.8 Blood alcohol level of 240 mg/100 ml or more; Z87.01 Personal history of pneumonia (recurrent)
CPT/HCPCS: 31720; 36415; 36600; 70450-TC; 71010-TC; 80048-TC; 80053-TC; 80061-TC; 80305; 81000-TC; 82803-TC; 83735-TC; 84100-TC; 84443-TC; 84484-TC; 85025-TC; 86850-TC; 87070-TC; 87081-TC; 87086-TC; 94002-TC; 94003-TC; 94640-TC; 94760-TC; 94799-TC; 99082-TC; A4606; C9113; G0480; G6039-TC; J0330; J1650; J2060; J3475; J3490; J7030; Z7610

== ENCOUNTER 2016-07-30 17:56 | Emergency (ER) | payer BC ==
[~2016-07-30] VITALS: Ht 182.9 cm; Wt 83.9 kg
[~2016-07-30 17:56] MED LIST changes: -IBUP-1955 PO
--- NOTE | 2016-07-30 18:10 | NUR ---
PT BIB [facility] WITH A C/O ETOH. PT WAS TRYING TO GET ON THE ORANGE LINE WITH VODKA. 911 WAS CALLED AND PT WAS TAKEN TO ER. PT IS ON THE MONITOR AND CONTINUOUS PULSE OX.
[2016-07-30] MEDS ORDERED: IV NS 0.9% 1,000 ML BAG IV ONE (18:30)
--- NOTE | 2016-07-30 18:33 | NUR ---
IN AND OUT GUZMAN DONE. APPROX 150 ML CLEAR URINE OUTPUT NOTED.
--- NOTE | 2016-07-30 18:34 | NUR ---
PT LEFT FOR CT VIA GURNEY.
[2016-07-30 18:39] LABS: BASOPHILS # (AUTO) 0.1 /CMM (0.0-0.2); EOSINOPHILS # (AUTO) 0.1 /CMM (0.0-0.7); EOSINOPHILS % (AUTO) 1.3 % (0.0-6.0); HEMATOCRIT 48 % (39-51); HEMOGLOBIN 15.8 g/dL (13.5-17.5); LYMPHOCYTES % (AUTO) 53.3 % (20.0-44.0); MEAN CORPUSCULAR HEMOGLOBIN 28 PG (26.0-33.0); MEAN CORPUSCULAR HGB CONC 33 g/dl (31.0-36.0); MEAN CORPUSCULAR VOLUME 83 fL (80-96); MONOCYTES # (AUTO) 0.6 /CMM (0.1-1.30); MONOCYTES % (AUTO) 6.9 % (2.0-12.0); NEUTROPHILS # (AUTO) 3.5 /CMM (1.8-8.9); NEUTROPHILS % (AUTO) 37.5 % (43.0-81.0); PLATELET COUNT (AUTO) 344 /CMM (150-450); RDW COEFFICIENT OF VARIATION 12.9 (11.5-15.0); RED BLOOD CELL COUNT(AUTO) 5.75 MIL/uL (4.5-6.0); WHITE BLOOD COUNT (AUTO) 9.3 K/uL (4.3-11.0)
[2016-07-30 18:42] LABS: APPEARANCE,URINE Clear (CLEAR); BILIRUBIN,URINE Negative (NEGATIVE); BLOOD, URINE Trace-intact Ery/uL (NEGATIVE); COLOR,URINE Yellow (YELLOW); KETONES,URINE Negative (NEGATIVE); LEUKOCYTE ESTERASE ,URINE Negative (NEGATIVE); NITRITE, URINE Negative (NEGATIVE); PROTEIN,URINE Negative (NEGATIVE); UGLUCOSE Negative (NEGATIVE); UROBILINOGEN,URINE 0.2 EU/dL (0.2)
[2016-07-30] MEDS ORDERED: NALOXONE PREFILLED SYRINGE 2 MG/2 ML SYRINGE ONE (18:42)
[2016-07-30] MEDS ORDERED: IV SET PRIMARY 1 EA INFUS.SET MC ONE (18:42)
[2016-07-30] MEDS ORDERED: IV NS 0.9% 1,000 ML ONE (18:42)
[2016-07-30 18:48] LABS: CANNABINOID, URINE NEGATIVE (NEGATIVE); PHENCYCLIDINE SCREEN,URINE NEGATIVE (NEGATIVE)
[2016-07-30] MEDS: NALOXONE HCL 0.4 MG/ML AMPUL IV STA ×2 (18:49→19:00)
[2016-07-30 18:51] LABS: CALCIUM, SERUM 8.2 mg/dL (8.5-10.1); CREATININE 0.9 mg/dL (0.6-1.3); POTASSIUM 4.8 mmol/L (3.5-5.1)
[2016-07-30 18:55] LABS: ADD URINE CULTURE NO; BACTERIA,URINE Rare /HPF (None Seen); RBC,URINE 0-2 /HPF (0-2); SQUAMOUS EPITHELIAL CELL,UR Few /HPF (None Seen); WBC,URINE 0-2 /HPF (0-3)
[2016-07-30 18:59] LABS: ALBUMIN 4.2 g/dL (3.4-5.0); BILIRUBIN,TOTAL 0.2 mg/dL (0.2-1.0); SALICYLATE 2.9 mg/dL (2.8-20.0); TOTAL PROTEIN, SERUM 8.1 g/dL (6.4-8.2)
--- NOTE | 2016-07-30 19:00 | NUR ---
PT REC'D MEDICATION ORDERED. NO CHANGE NOTED.
--- NOTE | 2016-07-30 19:40 | NUR ---
PT APPEARS TO BE SLEEPING SOUNDLY. PT IS ON THE MONITOR AND CONTINUOUS PULSE OX. PT IS EASILY AROUSED.
--- NOTE | 2016-07-30 21:36 | NUR ---
PT APPEARS TO BE SLEEPING COMFORTABLY. NO S/S OF PAIN OR DISTRESS NOTED. WILL CONTINUE TO MONITOR THE PT.
--- NOTE | 2016-07-30 22:55 | NUR ---
PT AMBULATED TO THE BATHROOM WITH A STEADY GAIT AND THEN BACK TO BED #12.
--- NOTE | 2016-07-30 23:28 | NUR ---
REPORT GIVEN TO DAJUAN MCLAUGHLIN/ MALGORZATA FOR MIN.
[2016-07-31 05:57] VITALS: BP 118/69
--- NOTE | 2016-07-31 05:57 | NUR ---
PT OK TO BE DISCHARGED PER DR BEAR. IV removed. Catheter intact and site benign. Pressure and 4x4 applied to site. No bleeding noted.Patient discharged to home in stable condition. Written and verbal after care instructions given. Patient verbalizes understanding of instruction.Patient is awake and alert to self, day, and place. PT ambulatory with a steady gait
== END 2016-07-31 05:58 | disposition home or self-care (01) ==
LOC: ER 17:57
DX: F10.10 Alcohol abuse, uncomplicated (principal); R40.4 Transient alteration of awareness
CPT/HCPCS: 36415; 70450-TC; 80048-TC; 80076-TC; 80305; 81000-TC; 85025-TC; A4606; G0480; G6039-TC; J2310; J7030; Z7610